=== PATIENT | female | born 1955 | race Caucasian/White ===

== ENCOUNTER 2017-03-29 10:00 | Inpatient (IN) | payer BC ==
[~2017-03-29] VITALS: Ht 167.6 cm; Wt 78.0 kg
--- NOTE | ~2017-03-29 | DS ---
PATIENT'S NAME: SARAH MORALES [facility] AGE: 61 Y [address] ROOM: [facility] [place] [place], [place] [address] LOCATION: [facility] ADMIT DATE: 04/01/2017 Discharge Summary DISCHARGE DATE: 04/05/2017 FAMILY PHYSICIAN: Bobby Gurrola MD ATTENDING PHYSICIAN: Cheryle Escudero ADMISSION MAIN DIAGNOSES: 1. L4-L5 spondylolisthesis with mechanical low back pain. 2. L4-L5 spinal stenosis with radiculopathy. 3. L3-L4, L4-L5, L5-S1 facet arthropathy with mechanical low back pain. DISCHARGE MAIN DIAGNOSES: 1. L4-L5 spondylolisthesis with mechanical low back pain. 2. L4-L5 spinal stenosis with radiculopathy. 3. L3-L4, L4-L5, L5-S1 facet arthropathy with mechanical low back pain. PROCEDURES DURING ADMISSION: 1. L4-L5 interbody and posterolateral instrumented arthrodesis. 2. L4-L5 osteotomy. 3. L3-L4, L5-S1 posterolateral noninstrumented fusion. COMPLICATIONS DURING ADMISSION: None FOLLOWUP APPOINTMENTS AND DISCHARGE INSTRUCTIONS: 1. Followup with Dr. Orozco, Urology, in his office on April 12, 2017, at 9 a.m. Call his office for any concerns regarding urinary retention. 2. Myself on April 13, 2017, for staple removal. 3. Corset brace when mobilizing. 4. Call my office for any concerns regarding the wound healing or for any new neurologic symptoms. 5. No heavy lifting (no more than 20 pounds), no forward bending, no back twisting. 6. Seek medical attention if having fever, increasing abdominal or back pain, or any new neurologic symptoms. 7. Keep the dressing on and dry till April 11, then take off and keep the wound open to air. MEDICATIONS ON DISCHARGE: 1. Resume all pre-admission medications. 2. Macrobid 100 mg p.o. b.i.d. for 10 days. 3. OxyContin 20 mg p.o. b.i.d. 4. Flexeril 10 mg p.o. every 8 hours p.r.n. PATIENT'S NAME: SARAH MORALES [facility] AGE: 61 Y [address] ROOM: [id number] [place], [place] [address] LOCATION: [facility] ADMIT DATE: 04/01/2017 Discharge Summary DISCHARGE DATE: 04/05/2017 FAMILY PHYSICIAN: Bobby Gurrola MD ATTENDING PHYSICIAN: Cheryle Escudero 5. Oxycodone 5 to 15 mg every 4 hours p.r.n. 6. Tramadol 50 to 100 mg p.o. every 6 hours p.r.n. HOSPITAL COURSE: The above patient was admitted electively to the hospital for the above-mentioned surgery. She underwent an unremarkable operation. Postoperatively, the patient did very well from the surgical perspective. Initially, her surgical pain was controlled using patient-controlled analgesia and subsequently the patient was switched to oral pain medications. The patient was mobilized by Physiotherapy and Occupational Therapy and she did very well. Her preoperative achy mechanical low back pain and the radicular symptoms on her lower extremities completely resolved. She had no new neurological deficits. Unfortunately, the patient developed urinary retention that required multiple straight catheterization. The patient has a long history of bladder issues. She is a patient of Dr. Orozco, Urology. Dr. Figueroa was consulted over the weekend and the patient's PVRs were observed. On the day of discharge, the patient required straight catheterization for 800 mL of residual. Given that, I contacted Dr. Orozco, who recommended discharging the patient with a Cheng catheter and then follow up with him in a week. Fortunately, the patient was able to void with zero PVR on bladder scan. Given that, I contacted Dr Orozco again who recommended discharging patient without catheter and follow up in his office as directed above. He also recommended urgent assessment for any urinary symptoms. On the day of discharge, the patient was examined. She remained neurologically intact. Her dressing was dry. She also had postoperative lumbar spine x-rays and those showed satisfactory placement of the hardware and no complications. I reviewed the discharge instructions with regard to surgery and urinary retention. The patient understood those instructions. The patient will be discharged home today. MD ANNALISA PRESTON/yolanda /[id number] CC: MD Yony Arechiga MD d: 04/06/17 0403 t: 04/06/17901, DISCHARGE SUMMARY
--- NOTE | ~2017-03-29 | CON ---
PATIENT'S NAME: SARAH MORALES [facility] AGE: 61 Y [address] ROOM: [address] [place], [place] [address] LOCATION: [facility] ADMIT DATE: 04/01/2017 Consultation DISCHARGE DATE: FAMILY PHYSICIAN: Bobby Gurrola MD ATTENDING PHYSICIAN: MIRIAN ESCUDERO DATE OF CONSULTATION: 04/04/2017 REFERRING PHYSICIAN: LANDY PIERCE MD CHIEF COMPLAINT: Urinary retention. HISTORY OF PRESENT ILLNESS: The patient is a pleasant, 61-year-old female who most recently underwent lumbar fusion by Dr. Escudero on April 01, 2017 without complication. The patient has been having some difficulties postoperatively with urinary retention requiring multiple straight catheterizations. Initially, her postvoid residuals on catheterization were in the 1 L range, however, have been improving slightly today. Today, she has been voiding volumes around 200 mL at a time with residuals now at 450 to 490 mL postvoid residual on bladder scan. The patient does have a significant urologic history and routinely follows with Dr. Yony Orozco. She does have a known solitary right kidney and had apparently underwent a nephrectomy as a child for benign disease. The patient also states that she had undergone a sling procedure at the time of her hysterectomy over 20 years ago. At the time of her hysterectomy, she had also apparently had a prolapse repair. Dr. Orozco most recently performed cystoscopy with retrogrades, bladder biopsies, and hydrodistention of her bladder in May 2013. Pathology from her bladder was consistent with mucosal erosion with associated chronic inflammation and increased number of the eosinophilia. Apparently, the patient also has a history of continued irritative voiding symptoms and abdominal pain despite negative urine cultures. Dr. Orozco believes that she may have a component of interstitial cystitis (painful bladder syndrome). The patient denies any recent difficulty with urinary retention and had been doing well up until her recent surgery. The patient has no further questions or concerns at this time. PAST MEDICAL HISTORY: 1. Probable interstitial cystitis (painful bladder syndrome). 2. Lumbar disk disease. 3. Emphysema. 4. Hyperlipidemia. 5. History of alpha-1 antitrypsin deficiency. 6. History of pneumonia. 7. History of vitamin B12 deficiency. 8. COPD. PATIENT'S NAME: SARAH MORALES [facility] AGE: 61 Y [address] ROOM: [place] [address] LOCATION: N ADMIT DATE: 04/01/2017 Consultation DISCHARGE DATE: FAMILY PHYSICIAN: Bobby Gurrola MD ATTENDING PHYSICIAN: MIRIAN ESCUDERO PAST SURGICAL HISTORY: 1. Right nephrectomy as a child for benign disease. 2. Knee surgery. 3. Right rotator cuff surgery. 4. Prior breast biopsy. 5. Recent lumbar fusion by Dr. Escudero. 6. Cystoscopy, retrogrades, hydrodistention of bladder, and bladder biopsy June [address], [address] Yony Orozco. FAMILY HISTORY: The patient denies any known family history of genitourinary abnormalities. SOCIAL HISTORY: The patient is and lives in [place]. She is an active smoker. She does report alcohol use. ALLERGIES: LEVAQUIN, FLAGYL, CODEINE, CLEOCIN, STATINS, BACTRIM, AND DOXYCYCLINE. REVIEW OF SYSTEMS: A full 10+ point review of systems was performed with pertinent positives and negative findings included in history of present illness. All other systems were reviewed and are otherwise negative. PHYSICAL EXAMINATION: VITAL SIGNS: Temperature is 98.4 degrees Fahrenheit, pulse 91, blood pressure 94/63, respiratory rate 12, oxygen saturation 94% on room air. CONSTITUTIONAL: No acute distress. The patient is hemodynamically stable. HEENT: Extraocular muscles intact. Mucous membranes moist. No drainage per ears and nose. CARDIAC: Good peripheral perfusion. RESPIRATORY: No audible wheezing or stridor. Respirations do not appear labored. ABDOMEN: Soft, nontender, and nondistended. MUSCULOSKELETAL: Moves all extremities. NEUROLOGIC: No focal deficits noted. HEMATOLOGIC: No active sites of bruising or bleeding. PSYCHIATRIC: Normal affect and answers questions appropriately. IMPRESSION: 1. Postoperative urinary retention. 2. History of probable interstitial cystitis (painful bladder syndrome). 3. Solitary right kidney. PATIENT'S NAME: SARAH MORALES [facility] AGE: 61 Y [address] ROOM: [place] [address] LOCATION: [facility] ADMIT DATE: 04/01/2017 Consultation DISCHARGE DATE: FAMILY PHYSICIAN: Bobby Gurrola MD ATTENDING PHYSICIAN: MIRIAN ESCUDERO PLAN: I had a long discussion today with the patient regarding my findings. We discussed numerous different etiologies for her retention, but likely is multifactorial given recent surgery and narcotic requirements postoperatively as well as some limited mobility. Regardless her postvoid residuals continue to improve, I think for now we can continue to monitor this and hopefully avoid catheter placement or having the patient perform clean intermittent catheterization. The patient was quite adamant that she would not be able to perform self-catheterization at home. If we are able to get her out of the hospital by tomorrow without a catheter, I would recommend having her follow back up in Urology Clinic this coming Wednesday or to check a postvoid residual with bladder scan. The patient seems to think that she could get this done at her primary care provider's office and fax us the results. The patient also should continue routine follow up as currently scheduled with Dr. Yony Orozco, her primary urologist. Dr. Escudero will also be covering the patient with some antibiotic given her hardware and recent surgery which I think is reasonable. LANDY PIERCE MD GP/modl /[id number] d: 04/04/17 2330 t: 04/14/17 0823, CONSULTATION REPORT
--- NOTE | ~2017-03-29 | OR ---
PATIENT'S NAME: SARAH MORALES [facility] AGE: 61 Y [address] ROOM: [address] [place] [id number] LOCATION: [facility] ADMIT DATE: 04/01/2017 OR/Procedure Report DISCHARGE DATE: FAMILY PHYSICIAN: Bobby Gurrola MD ATTENDING PHYSICIAN: CHERYLE ESCUDERO SURGEON: Cheryle Escudero MD PHOTOLITHOGRAPHIC STRIPPER: DATE OF PROCEDURE: 04/01/2017 ANESTHESIOLOGIST: Kannan Lara MD. ANESTHESIA: General. COMPLICATIONS: None. ESTIMATED BLOOD LOSS: 300 mL. PREOPERATIVE DIAGNOSES: 1. L4-5 grade 1 degenerative spondylolisthesis with mechanical low back pain. 2. L4-5 severe spinal stenosis with radiculopathy. 3. L3-4 severe facet arthropathy with mechanical low back pain. 4. L5-S1 severe facet arthropathy with mechanical low back pain. 5. L4-5 severe facet arthropathy with mechanical low back pain. POSTOPERATIVE DIAGNOSES: 1. L4-5 grade 1 degenerative spondylolisthesis with mechanical low back pain. 2. L4-5 severe spinal stenosis with radiculopathy. 3. L3-4 severe facet arthropathy with mechanical low back pain. 4. L5-S1 severe facet arthropathy with mechanical low back pain. 5. L4-5 severe facet arthropathy with mechanical low back pain. PROCEDURES: 1. L4-L5 interbody and posterolateral instrumented arthrodesis. 2. L3-4 posterolateral noninstrumented arthrodesis. 3. L5-S1 posterolateral noninstrumented arthrodesis. 4. L4-5 Uribe-Vila osteotomy (bilateral, and symmetrical). 5. Insertion of bilateral L4, bilateral L5 pedicle screws (system used is Medtronic Solera System). 6. Insertion of an expandable titanium cage into L4-5 disk for interbody fusion (System used is Globus RISE implant). 7. Intraoperative fluoroscopy. 8. Insertion of bone morphogenic protein into L4-L5 disk space. 9. Insertion of mixture of autograft, allograft, and DBM bone PATIENT'S NAME: SARAH MORALES [facility] AGE: 61 Y [address] ROOM: [facility] [place] [place], [place] [address] LOCATION: [facility] ADMIT DATE: 04/01/2017 OR/Procedure Report DISCHARGE DATE: FAMILY PHYSICIAN: Bobby Gurrola MD ATTENDING PHYSICIAN: CHERYLE ESCUDERO posterolaterally at L3-4, L4-5, and L5-S1 levels. CLINICAL HISTORY: The patient is a 61-year-old female patient who was diagnosed clinically and on imaging to have the above-mentioned diagnoses. The patient had failed conservative treatment. She was very symptomatic and her daily functioning was limited. I recommended the above-mentioned surgeries to the patient to relieve her symptoms and improve her daily functioning. I discussed the procedure in detail, the benefits, and all the risks associated with it. Signed informed consent was obtained, and the patient was brought in for elective surgery. DESCRIPTION OF PROCEDURE: The patient was seen in the preoperative care unit and the correct side was marked. Then, she was transferred to the main operating theater, was given general anesthetic, and underwent endotracheal intubation without complications. Preoperative antibiotics were given. Cheng catheter, calf compressors, arterial line were used throughout the procedure. Then, the patient was turned to prone position on a gel padded Jimi table and all her joints and bony prominences were securely padded. The lumbar region was exposed. Surgical site was then prepped and draped as per usual. I started by marking a midline lumbar incision extending from L3 down to S1 spinous process. That incision was infiltrated with 0.25% Marcaine with epinephrine. Skin was sharply opened down to the subcutaneous tissue, then using a monopolar cautery, the posterior elements were exposed from L3 down to S1. As expected based on preoperative imaging, there was severe L3-4, L4-5, and L5-S1 facet arthropathy with very large mavis-facet osteophytes. The correct level was then confirmed using intraoperative fluoroscopy. I started by inserting pedicle screws into L4 and L5 vertebra. Based on the standard anatomical landmarks and using intraoperative fluoroscopy, bilateral L4, bilateral L5 pedicle screws were inserted from the Paxera Solera System without any complications. The hardware placement was confirmed using anterior-posterior, and lateral projection x-rays. I was satisfied with that. Then, I proceeded to perform the interbody fusion at L4-L5 level. I did that from the left side. The lateral aspect of the L4 lamina was thinned down to the intertransverse ligament. Then, using Kerrison rongeur, the intertransverse ligament was removed to expose the annulus of the L4-L5 disk. The annulus was coagulated and incised. Then, the L4-L5 disk was prepared for the interbody fusion using different sizes of curettes and pituitary rongeur. I was satisfied with that. Then, I packed the anterior aspect of the L4-L5 disk with autograft bone. I also inserted bone morphogenic protein into L4-L5 disk. Then, under guidance of intraoperative fluoroscopy, an expandable titanium cage from the Globus RISE Implant System was inserted and expanded PATIENT'S NAME: SARAH MORALES [facility] AGE: 61 Y [address] ROOM: [address] [address] LOCATION: [facility] ADMIT DATE: 04/01/2017 OR/Procedure Report DISCHARGE DATE: FAMILY PHYSICIAN: Bobby Gurrola MD ATTENDING PHYSICIAN: CHERYLE ESCUDERO without any complications. I was satisfied with that. The entry into the L4- L5 disk was sealed using DuraSeal. Then, I proceeded to perform the osteotomy at L4-L5 level. Using an osteotome, the L4 inferior articular facet was removed. I also removed the L4 lamina and the pars interarticularis. I also used Kerrison rongeur to remove the medial projecting osteophytes from the L5 superior facet. The underlying ligamentum flavum was removed to decompress the thecal sac and the traversing L5 nerve roots. I noticed some scarring around the dura, especially on the right side, and that was dissected off without any complications. I was satisfied with that. The thecal sac was completely decompressed. Then, I proceeded to perform the posterolateral arthrodesis at L3-4, and L5-S1 levels. Using Leksell, the L3-4, L5-S1 facets were decorticated. Then, a high-speed Midas Amish drill was used to decorticate the L3-4, and L5-S1 facets to facilitate posterolateral noninstrumented arthrodesis. I was satisfied with that. Then, I proceeded to insert rods and locked the screws. Rods were inserted from the Pipedrivetronic Solera System, the screws were capped and finally locked. Final anterior, posterior, and lateral projection x-rays were done and that showed satisfactory placement of the hardware and no complications. Then, I proceeded to irrigate the wound and closed. The wound was copiously irrigated with bacitracin-containing irrigation. The dura was then covered with Gelfoam. Then, a mixture of allograft, autograft, and DBM bone was placed posterolaterally and bilaterally at L3-4, L4-5, and L5-S1 levels for posterolateral arthrodesis. Then, a 1/ Hemovac drain was inserted, tunneled, and secured to the skin with 3-0 Prolene. Then, the wound was closed in layers with #1 Vicryl to the paraspinal muscles, #1 Vicryl to the lumbar fascia, 2-0 Vicryl to the subcutaneous tissue, and elisa for the skin. Sterile dressing was applied. At the end of the operation, the instrument and sponge counts were correct. The patient tolerated the operation without any complications. MD ANNALISA PRESTON/yolanda /[id number] PATIENT'S NAME: SARAH MORALES [facility] AGE: 61 Y [address] ROOM: [place] [address] LOCATION: [facility] ADMIT DATE: 04/01/2017 OR/Procedure Report DISCHARGE DATE: FAMILY PHYSICIAN: Bobby Gurrola MD ATTENDING PHYSICIAN: CHERYLE ESCUDERO CC: Bobby Gurrola MD d: 04/01/17 2300 t: 04/05/17 1201, OPERATIVE SUMMARY
[2017-03-29] MEDS ORDERED: ELMIRON100 MG PO (10:15)
[2017-03-29] MEDS ORDERED: TROSPIUM CHLORI60 MG PO (10:15)
[2017-03-29] MEDS ORDERED: TRICOR145 MG PO (10:16)
[2017-03-29] MEDS ORDERED: ZETIA10 MG PO (10:16)
[2017-03-29] MEDS ORDERED: TRAMADOL HCL E100 MG PO (10:16)
[2017-03-29] MEDS ORDERED: DUAVEE 0.45-201 EACH PO (10:17)
[2017-03-29] MEDS ORDERED: FIORINAL1 TAB PO (10:18)
[2017-03-29] MEDS ORDERED: PROLASTIN C IV (10:25)
[2017-03-29] MEDS ORDERED: NORCO 10-325 T1 EACH PO (10:25)
--- NOTE | 2017-04-01 17:48 | NUR ---
Pt here from PACU at 1625. She was held extra long in PACU due to low BP. BP now 101/69. History of having Low BP with narcotics post op. She also has history of opiod tolerance. VS for you will be 3rd 30 min due at 1840. Dilaudid BLOCK TRADER and flowsheet at bedside. End tidal and sat probe on. Rates pain at 5 low back at this time. LS corset fitted about 30 min ago and says feels good. Pt has hemovac and 150 ml out in PACU. Cheng catheter and 375 out in PACU. Pt had back dressing with scant drainage. Tilted to side. Pt denies nausea. Is to have xray in AM. CSM WNL bilat legs and feet. Preop numbness to feet gone she says. Has painful Rt 5th toe from injury at home previous to coming in. IS use up to 2250. Pt has harsh cough.
--- NOTE | 2017-04-02 04:55 | NUR ---
Patient is alert and oriented x3, very anxious at times, csm with in normal limits, dressing to back has moderate amount of bloody drainage, hemavac in place with 200ml of bloody drainage, has back brace that needs to be on when out of bed, stood next the bed with two assist and took a few steps, has had pain control issues tonight and is on a WEIGHT ENGINEER
[2017-04-02 05:34] LABS: BASOPHIL % 0.3 %; EOSINOPHIL # 0.3 K/uL (0.0-0.5); HEMATOCRIT 29.5 % (33.0-46.0); HEMOGLOBIN 9.5 g/dL (10.0-15.0); IMMATURE GRANULOCYTE % 0.3 %; LYMPHOCYTE # 1.1 K/uL (0.8-4.0); LYMPHOCYTE % 16.7 %; MCH 29.3 pg (27.0-34.0); MCHC 32.2 gm/dL (32.0-36.5); MONOCYTE # 0.4 K/uL (0.0-1.0); MONOCYTE % 6.3 %; NEUTROPHIL # (ANC) 4.9 K/uL (1.8-7.8); NEUTROPHIL % 72.4 %; NRBC % 0 /100WBC (0-0.00); PLATELET COUNT 143 K/uL (150-450); RBC 3.24 M/uL (3.50-5.50); RDW-CV 14.4 % (11.9-14.6); WBC 6.7 K/uL (4.0-11.0)
[2017-04-02 05:42] LABS: ANION GAP 9.3 (10.0-19.0); POTASSIUM 4.3 mMol/L (3.7-5.1)
--- NOTE | 2017-04-02 12:30 | NUR ---
SPOKE TO PATIENT REGARDING CM AND OUR ROLE. PATIENT LIVES IN OWN HOME WITH HER SPOUSE AND IS PLANNING ON RETURNING THERE ONCE SHE IS READY FOR DISCHARGE. SHE ANTICIPATES THAT SHE WILL BE DISCHARGED EITHER WEDNESDAY OR WEDNESDAY. SHE DOES NOT THINK THAT SHE WILL NEED A FRONT WHEELED WALKER. IF SHE NEEDS ONE SHE IS GOING TO CHECK WITH A FRIEND IF THEY HAVE THE ONE SHE LENT TO THEM THAT IS HER'S. WILL CONT TO FOLLOW NEEDED.
--- NOTE | 2017-04-02 17:11 | NUR ---
Significant Event: Ambulates few steps with one assist, walker and gaitbelt. LSO brace when out of bed. Dressing intact with old bloody drainage. Hemovac with 120mL out this shift. Voids frequenlty, urgency with voids, wears breif. CHIEF CRUISER d/cd at 1045. Roxicodone 10mg last at 1530. Needs encouragement with movement. Follow up:
--- NOTE | 2017-04-03 05:03 | NUR ---
Significant Event: Alert/oriented x3. VSS. CSM WNL. Drain had 50 mls out. Small bloody drainage to dressing, marked, no change since beginning of shift. 1 assist ambulation. Voids frequently, used bathroom x3, bedside x2. Roxicodone 2 tablets at 1911, 2315, 0357; scheduled Oxycodone at 2101; scheduled Ultram at 210. Saline lock in right wrist. LSO brace on when up. Room air. Needs encouragement with movement. Follow up:
[2017-04-03 05:35] LABS: BASOPHIL % 0.4 %; EOSINOPHIL # 0.4 K/uL (0.0-0.5); EOSINOPHIL % 4.6 %; HEMATOCRIT 31.6 % (33.0-46.0); HEMOGLOBIN 10.5 g/dL (10.0-15.0); IMMATURE GRANULOCYTE % 0.3 %; LYMPHOCYTE # 1.4 K/uL (0.8-4.0); LYMPHOCYTE % 17.8 %; MCHC 33.2 gm/dL (32.0-36.5); MCV 90.3 fl (83.0-98.0); MONOCYTE # 0.6 K/uL (0.0-1.0); MONOCYTE % 7.3 %; MPV 10.2 fl (9.4-12.4); NEUTROPHIL # (ANC) 5.5 K/uL (1.8-7.8); NEUTROPHIL % 69.6 %; NRBC % 0 /100WBC (0-0.00); PLATELET COUNT 154 K/uL (150-450); RDW-CV 14.5 % (11.9-14.6); WBC 7.8 K/uL (4.0-11.0)
[2017-04-03 05:47] LABS: ANION GAP 9.1 (10.0-19.0); POTASSIUM 4.1 mMol/L (3.7-5.1)
[2017-04-03 09:37] LABS: BILIRUBIN URINE NEGATIVE (NEGATIVE); BLOOD URINE 50 /UL (NEGATIVE); COLOR URINE STRAW (YELLOW); GLUCOSE URINE NEGATIVE (NEGATIVE); KETONE URINE NEGATIVE (NEGATIVE); LEUKOCYTES URINE NEGATIVE /UL (NEGATIVE); NITRITE URINE NEGATIVE (NEGATIVE); PROTEIN URINE NEGATIVE (NEGATIVE); TURBIDITY URINE CLEAR (CLEAR); UROBILINOGEN URINE NORMAL (NORMAL)
[2017-04-03 09:43] LABS: WBC URINE RARE #/HPF (NEGATIVE)
[2017-04-03 09:44] LABS: BACTERIA URINE NEGATIVE (NEGATIVE)
--- NOTE | 2017-04-03 16:28 | NUR ---
Significant Event: PT ALERT AND ORIENTED. UP WITH MINIMAL ASSIST TO THE BATHROOM. HAS HAD AN ISSUE WITH VOIDING THIS SHIFT. VOIDS 200 AND BLADDER SCAN DONE WITH 828 RESIDUAL. STRAIGHT CATH DONE AT 1000 FOE 1000CC. PT AGAIN VOIDED AT 1300 400 CC RESIDUAL [id number]. PT REFUSED STRAIGHT CATH AGAIN THIS AFTERNOON. ROXICODONE INCREASED TO 5-15 MG EVERY 4 HOURS PRN. WILL UPDATE YOU WITH LAST DOSE. NO BM TODAY. DRESSING TO LOWER BACK INTACT WITH SHADDOW OF DRAINAGE ON DRESSING. BRACE ON WHEN UP. HOME POSSIBLE TOMORROW IF NORMAL VOIDING RESUMES. Follow up:
--- NOTE | 2017-04-04 03:39 | NUR ---
Shift Summary: Straight Cathed patient for 850ml urine post void at 0210. Patient is independent in getting in and out of bed and putting on her back brace. Can have up to 15mg Roxicodone q 4hr. Likes to take 10ml and then 2hr later take the 5mg. Still has hemovac with 40ml out this shift. Has old dried drainage to back dressing. If urinary retention resolves she should go home today.
--- NOTE | 2017-04-04 18:00 | NUR ---
Pt alert and oriented. She has been up recliner all shift. Amb to BR at least every hr with standby assist. Doesn't have to wear brace unless in [place]. Pt dressing changed and vac removed earlier. Pain rated mostly at 6 and has had oxycodone 10 mg last at 1500 and 5 mg last at 1700. Pt has voided about 200 to 300 each time with post void residuals ranging from 409-587. No straight caths this shift. Dr Figueroa saw pt. Started on macrobid. Possibly home tomorrow. Pt CSM WNL.
--- NOTE | 2017-04-05 04:20 | NUR ---
Shift Summary: Patient is independent to ambulate to by herself. She voids very frequently due to urinary retention. Needs straight cathed if over 600ml residual. Highest she has been is 587. Patient given MOM for no BM in 4 days. Patient can have up to 15mg Roxicodone/4hr period. Likes to take 10mg then 5mg 2 hr later. Has a corset brace to wear if ambulates in the [place]. Plan is for home today.
--- NOTE | 2017-04-05 11:57 | NUR ---
SUPPORTIVE VISIT: MEET WITH PATIENT SHE IS PLANNING ON BEING DISCHARGE HOMET TODAY. SHE TELLS ME THAT SHE HAS ACESS TO WALKER BUT DOES NOT FEEL THAT SHE WILL NEED IT. PATIENT IS HOPING THAT SHE DOES NOT NEED TO GO HOME WITH MARIN CATH SHE IS WAITING FOR "DR. PIÑA TO COME AND DECIDED" PATIENT DOES NOT ANTICIPATE ANY DISCHARGE NEEDS AT THIS TIME.
[2017-04-05] MEDS ORDERED: COLACE100 MG PO (13:11)
[2017-04-05] MEDS ORDERED: MACROBID100 MG PO (13:12)
[2017-04-05] MEDS ORDERED: OXYCONTIN EXTEN20 MG PO (13:12)
[2017-04-05] MEDS ORDERED: FLEXERIL10 MG PO (13:14)
[2017-04-05] MEDS ORDERED: ROXICODONE 5MG (5 MG PO (13:15)
== END 2017-04-05 15:10 | disposition disaster alternative care site (69) | DRG 460 ==
LOC: G3N 04-01 06:13
PROVIDERS: ADMIT Neurological Surgery
DX: M48.06 Spinal stenosis, lumbar region (principal); N30.10 Interstitial cystitis (chronic) without hematuria; E53.8 Deficiency of other specified B group vitamins; J44.9 Chronic obstructive pulmonary disease, unspecified; M43.16 Spondylolisthesis, lumbar region; M54.16 Radiculopathy, lumbar region; R33.9 Retention of urine, unspecified; M12.88 Other specific arthropathies, not elsewhere classified, other specified site; E78.2 Mixed hyperlipidemia; Z98.1 Arthrodesis status; Z90.5 Acquired absence of kidney; F17.200 Nicotine dependence, unspecified, uncomplicated
CPT/HCPCS: C1713; J0690; J1170; J1644; J2001; J3010; J7030; J7050